=== PATIENT | female | born 1985 | race American Indian/Alaskan Native ===

== ENCOUNTER 2016-09-28 13:09 | Emergency (ER) | payer SELFPAY ==
[2016-09-28 13:34] VITALS: BP 114/69
--- NOTE | 2016-09-28 14:01 | Emergency Department Report ---
ED ENT HPI - General Chief complaint: Earache Stated complaint: RT EAR INFECTION Time Seen by Provider: 09/28/16 13:55 Source: patient Mode of arrival: Ambulatory Limitations: No Limitations - History of Present Illness Initial comments: PT states she had a R sided root canal 4 months ago. PT states 2 days ago, she had gradually onset of R ear pain. PT states the pain started when she was at work. PT denies injury or trauma PT states the pain started after using ear wax remover drops. pt also reports using qtips MD complaint: ear pain Onset/Timin -: Gradual, days(s) Location: R ear Severity: severe Severity scale (0 -10): 8 Quality: constant Consistency: constant Improves with: other medication (tylenol - mild improvement ) Worsens with: eating Context- Ear: direct trauma (qtip use ) Associated Symptoms: discharge from ear, rhinorrhea. denies: fever, cough, toothache, sore throat - Related Data Previous Rx's Medication Instructions Recorded Last Taken Type Acetaminophen/Codeine [Tylenol #3] 1 tab PO Q6H PRN #12 tab 09/28/16 Unknown Rx Cephalexin [Keflex] 500 mg PO Q6HR #28 capsule 09/28/16 Unknown Rx Ibuprofen [Motrin] 600 mg PO Q8H PRN #15 tablet 09/28/16 Unknown Rx Neomy/Polymyx B/Hc (Otic) Soln 4 drops OTIC QID #1 bottle 09/28/16 Unknown Rx [Cortisporin (Otic) Soln] Allergies Allergy/AdvReac Type Severity Reaction Status Date / Time No Known Allergies Allergy Verified 09/28/16 13:34 ED Dental HPI - General Chief complaint: Earache Stated complaint: RT EAR INFECTION Time Seen by Provider: 09/28/16 13:55 Source: patient Mode of arrival: Ambulatory Limitations: No Limitations - Related Data Previous Rx's Medication Instructions Recorded Last Taken Type Acetaminophen/Codeine [Tylenol #3] 1 tab PO Q6H PRN #12 tab 09/28/16 Unknown Rx Cephalexin [Keflex] 500 mg PO Q6HR #28 capsule 09/28/16 Unknown Rx Ibuprofen [Motrin] 600 mg PO Q8H PRN #15 tablet 09/28/16 Unknown Rx Neomy/Polymyx B/Hc (Otic) Soln 4 drops OTIC QID #1 bottle 09/28/16 Unknown Rx [Cortisporin (Otic) Soln] Allergies Allergy/AdvReac Type Severity Reaction Status Date / Time No Known Allergies Allergy Verified 09/28/16 13:34 ED Review of Systems ROS: Stated complaint: RT EAR INFECTION Other details as noted in HPI Comment: All other systems reviewed and negative Constitutional: denies: fever, malaise Gastrointestinal: denies: abdominal pain, nausea, vomiting Genitourinary: denies: abnormal menses (09-05-16 ) Neurological: headache ED Past Medical Hx - Past Medical History Previous Medical History?: No - Surgical History Past Surgical History?: No - Social History Smoking Status: Current Every Day Smoker Substance Use Type: Alcohol - Medications Home Medications: Home Medications Medication Instructions Recorded Confirmed Last Taken Type Acetaminophen/Codeine [Tylenol #3] 1 tab PO Q6H PRN #12 tab 09/28/16 Unknown Rx Cephalexin [Keflex] 500 mg PO Q6HR #28 capsule 09/28/16 Unknown Rx Ibuprofen [Motrin] 600 mg PO Q8H PRN #15 tablet 09/28/16 Unknown Rx Neomy/Polymyx B/Hc (Otic) Soln 4 drops OTIC QID #1 bottle 09/28/16 Unknown Rx [Cortisporin (Otic) Soln] ED Physical Exam - General Limitations: No Limitations General appearance: alert, in no apparent distress - Head Head exam: Present: atraumatic, normocephalic, normal inspection - Eye Eye exam: Present: normal appearance, PERRL, EOMI. Absent: conjunctival injection - ENT ENT exam: Present: normal orophraynx, mucous membranes moist. Absent: TM's normal bilaterally, normal external ear exam - Expanded ENT Exam Expanded Ear exam: Present: other (unable to visualize r tm due to canal edema and drainage ) TM/Canal exam: Cerumen Impaction: Left TM, Canal Discharge: Right TM, Canal Tenderness: Right TM Mouth exam: Present: normal external inspection. Absent: drooling, trismus Throat exam: Positive: normal inspection. Negative: tonsillar erythema, tonsillomegaly, tonsillar exudate, R peritonsillar mass, L peritonsillar mass - Neck Neck exam: Present: normal inspection. Absent: tenderness, full ROM, lymphadenopathy - Respiratory Respiratory exam: Present: normal lung sounds bilaterally. Absent: respiratory distress, chest wall tenderness - Cardiovascular Cardiovascular Exam: Present: regular rate, normal rhythm, normal heart sounds - Extremities Exam Extremities exam: Present: normal inspection, full ROM - Back Exam Back exam: Present: normal inspection, full ROM - Neurological Exam Neurological exam: Present: alert, oriented X3, normal gait - Psychiatric Psychiatric exam: Present: normal affect, normal mood - Skin Skin exam: Present: warm, dry, other (drainage from R ear canal) ED Course Vital Signs 09/28/16 13:32 Temperature 98.8 F Pulse Rate 96 H Respiratory 16 Rate Blood Pressure 114/69 O2 Sat by Pulse 99 Oximetry - Reevaluation(s) Reevaluation #1: 09/28/16 14:17 PT aware of dx. Pt aware she should not put anything in her ear canal, including q tips. pt verbalizes understanding. due to the edema, will place ear wick after drops sent from pharmacy. Reevaluation #2: 09/28/16 14:29 PT is self pay for RX. will treat empirically for OM. PT tolerated wick placement well. - Procedure Description Procedures done: Ear wick placed in R ear canal. 4 gtts cortisporin instilled. PT tolerated well. - Pulse Oximetry Interpretation Digit-Finger Initial Pulse Oximetry Readin Actions Taken: none ED Medical Decision Making - Differential Diagnosis cerumen impaction, om, oe Critical Care Time: No Critical care attestation.: If time is entered above; I have spent that time in minutes in the direct care of this critically ill patient, excluding procedure time. ED Disposition Clinical Impression: Left ear impacted cerumen Right otitis externa Qualifiers: Otitis externa type: unspecified type Chronicity: acute Qualified Code(s): H60.501 - Unspecified acute noninfective otitis externa, right ear Disposition: DC- TO HOME OR SELFCARE Is pt being admited?: No Does the pt Need Aspirin: No Condition: Stable Instructions: Otitis Externa (ED), Cerumen Impaction (ED) Additional Instructions: No driving or alcohol after taking Tylenol #[address] 4 gtts of the Cortisporin solution in your R ear 4 times a day x 7 days Return to ED in 2 days for recheck Return sooner if you feel sick, have fevers, have redness and swelling around ear or have concerns do not put anything in your ear canal continue otc cerumen removal drops to your L ear canal Prescriptions: Acetaminophen/Codeine [Tylenol #3] 1 tab PO Q6H PRN #12 tab PRN Reason: Pain , Severe (7-10) Cephalexin [Keflex] 500 mg PO Q6HR #28 capsule Ibuprofen [Motrin] 600 mg PO Q8H PRN #15 tablet PRN Reason: Pain Neomy/Polymyx B/Hc (Otic) Soln [Cortisporin (Otic) Soln] 4 drops OTIC QID #1 bottle Referrals: RUBEN DENTON MD [Staff Physician] - 3-5 Days [facility] [Outside] - 3-5 Days Time of Disposition: 14:03
[2016-09-28] MEDS ORDERED: CORTISPORIN AU ONE (14:04)
== END 2016-09-28 14:52 | disposition home or self-care (01) ==
LOC: ED 13:09
DX: H60.501 Unspecified acute noninfective otitis externa, right ear (principal); H61.22 Impacted cerumen, left ear; F17.200 Nicotine dependence, unspecified, uncomplicated